=== PATIENT | male | born 1965 | race Caucasian/White ===

== ENCOUNTER 2017-02-02 14:25 | Emergency (ER) | payer MEDICAID ==
[~2017-02-02] VITALS: Ht 175.3 cm; Wt 105.0 kg
[~2017-02-02 14:25] MED LIST: TRAM50TA3 PO
[2017-02-02] MEDS ORDERED: KETOROLAC 60MG/2ML VIAL IM ONE (19:00)
[2017-02-02] MEDS ORDERED: MORPHINE SULFATE 4 MG/ML CPJ (NOT FOR IM USE) IV ONE (21:00)
[2017-02-02] MEDS ORDERED: ETOMIDATE 2MG/ML 10ML VIAL IV ONE (21:00)
[2017-02-03 04:30] VITALS: BP 135/85
== END 2017-02-03 12:59 | disposition home or self-care (01) ==
LOC: ER 14:48 → CANBEDREQ 02-03 07:30 → ER 02-03 12:59
DX: S43.015A Anterior dislocation of left humerus, initial encounter (principal); Z87.828 Personal history of other (healed) physical injury and trauma; W01.0XXA Fall on same level from slipping, tripping and stumbling without subsequent striking against object, initial encounter; Y93.89 Activity, other specified; Y92.018 Other place in single-family (private) house as the place of occurrence of the external cause
CPT/HCPCS: 23650; 73030; 96372; 96374; 99152; 99291; J1885; J2270; J3490; Z7610

== ENCOUNTER 2017-05-31 12:40 | Emergency (ER) | payer MEDICAID ==
[~2017-05-31] VITALS: Ht 185.4 cm; Wt 146.0 kg
[2017-05-31 12:49] VITALS: BP 128/84
== END 2017-05-31 18:11 | disposition left against medical advice (07) ==
LOC: ER 16:08
DX: Z53.21 Procedure and treatment not carried out due to patient leaving prior to being seen by health care provider (principal)

== ENCOUNTER 2018-02-16 08:31 | Emergency (ER) | payer MEDICAID ==
[~2018-02-16] VITALS: Ht 185.4 cm; Wt 109.0 kg
[2018-02-16] MEDS ORDERED: IBUPROFEN 600MG TABLET PO ONE (11:45)
[2018-02-16 13:50] VITALS: BP 137/86
== END 2018-02-16 13:54 | disposition home or self-care (01) ==
LOC: ER 08:31
DX: M17.11 Unilateral primary osteoarthritis, right knee (principal)
CPT/HCPCS: 73562; 93971; 99284

== ENCOUNTER 2018-02-18 22:33 | Emergency (ER) | payer MEDICAID ==
[~2018-02-18] VITALS: Ht 185.4 cm; Wt 110.0 kg
[2018-02-19] MEDS ORDERED: IBUPROFEN 600MG TABLET PO ONE (01:45)
[2018-02-19 03:10] VITALS: BP 136/82
== END 2018-02-19 10:06 | disposition home or self-care (01) ==
LOC: ER 22:33
DX: M17.11 Unilateral primary osteoarthritis, right knee (principal); M25.561 Pain in right knee
CPT/HCPCS: 96372; 99283

== ENCOUNTER 2018-03-19 18:22 | Emergency (ER) | payer MEDICAID ==
[~2018-03-19] VITALS: Ht 185.4 cm; Wt 115.0 kg
[2018-03-19] MEDS ORDERED: IBUPROFEN 600MG TABLET PO ONE (22:30)
[2018-03-20] MEDS ORDERED: HYDROCODONE/ACETAMINOPHEN 5/325MG TABLET PO ONE (00:30)
[2018-03-20 01:58] VITALS: BP 138/87
== END 2018-03-20 02:13 | disposition home or self-care (01) ==
LOC: ER 18:22
DX: M54.5 Low back pain (principal); M25.551 Pain in right hip; M25.561 Pain in right knee
CPT/HCPCS: 72100; 73502; 73552; 73560; 99284; Z7610

== ENCOUNTER 2018-08-06 22:17 | Emergency (ER) | payer MEDICAID ==
[~2018-08-06] VITALS: Ht 185.4 cm; Wt 118.0 kg
[2018-08-07] MEDS ORDERED: IBUPROFEN 600MG TABLET PO ONE (08:15)
[2018-08-07] MEDS ORDERED: IBUPROFEN 600MG TABLET ONE (08:31)
[2018-08-07 08:56] VITALS: BP 135/77
== END 2018-08-07 08:32 | disposition home or self-care (01) ==
LOC: ER 22:17
DX: M13.861 Other specified arthritis, right knee (principal); M25.561 Pain in right knee; E66.9 Obesity, unspecified; F17.200 Nicotine dependence, unspecified, uncomplicated; Z68.34 Body mass index [BMI] 34.0-34.9, adult; Z91.81 History of falling
CPT/HCPCS: 73562; 99283

== ENCOUNTER 2018-08-08 01:36 | Emergency (ER) | payer MEDICAID ==
[~2018-08-08] VITALS: Ht 185.4 cm; Wt 106.6 kg
[2018-08-08] MEDS ORDERED: KETOROLAC 60MG/2ML VIAL IM ONE (04:15)
[2018-08-08 06:48] VITALS: BP 122/70
== END 2018-08-08 06:53 | disposition home or self-care (01) ==
LOC: ER 01:36
DX: M25.561 Pain in right knee (principal); F17.200 Nicotine dependence, unspecified, uncomplicated; F11.10 Opioid abuse, uncomplicated; Z79.899 Other long term (current) drug therapy; Z90.89 Acquired absence of other organs
CPT/HCPCS: 96372; 99283; J1885

== ENCOUNTER 2018-09-05 20:19 | Emergency (ER) | payer MEDICAID ==
[~2018-09-05] VITALS: Ht 185.4 cm; Wt 105.0 kg
[2018-09-05 20:44] VITALS: BP 145/77
== END 2018-09-05 23:20 | disposition left against medical advice (07) ==
LOC: ER 20:19
DX: M79.661 Pain in right lower leg (principal); Z53.21 Procedure and treatment not carried out due to patient leaving prior to being seen by health care provider

== ENCOUNTER 2018-09-06 06:44 | Emergency (ER) | payer MEDICAID ==
[~2018-09-06] VITALS: Ht 185.4 cm; Wt 104.0 kg
[2018-09-06 10:58] LABS: BASOPHILS % 0.5 % (0.0-2.0); EOSINOPHILS % 2.4 % (0.0-5.0); HEMATOCRIT. 42.8 % (42.0-52.0); HEMOGLOBIN. 13.9 g/dL (14.0-18.0); LYMPHOCYTES % 14.3 % (20.0-50.0); MEAN CORPUSCULAR HEMOGLOBIN 29.7 pg (28.0-32.0); MEAN CORPUSCULAR VOLUME 91.3 fL (80.0-94.0); MEAN PLATELET VOLUME 7.5 fl (7.4-10.4); MONOCYTES % 9.2 % (2.0-8.0); NEUTROPHILS % 73.6 % (40.0-76.0); PLATELET 343 x1000/uL (130-400); RED BLOOD CELL COUNT 4.69 mill/uL (4.7-6.1); RED CELL DISTRIBUTION WIDTH 13.6 % (11.6-14.6)
[2018-09-06 11:02] LABS: CHLORIDE 106 mEq/L (98-107)
[2018-09-06 11:04] LABS: PROTHROMBIN TIME 9.9 sec (9.1-11.1)
[2018-09-06] MEDS ORDERED: OXYCODONE HCL/ACETAMINOPHEN 5/325MG TABLET PO ONE (11:15)
[2018-09-06] MEDS ORDERED: IBUPROFEN 800MG TABLET PO ONE (13:15)
[2018-09-06] MEDS ORDERED: SULFAMETHOXAZOLE/TRIMETHOPRIM 400/80MG TAB PO ONE (13:30)
[2018-09-06] MEDS ORDERED: CEPHALEXIN 250MG CAPSULE PO ONE (13:30)
[2018-09-07 14:45] VITALS: BP 138/61
== END 2018-09-07 14:55 | disposition home or self-care (01) ==
LOC: ER 06:44
DX: L03.115 Cellulitis of right lower limb (principal); M54.30 Sciatica, unspecified side; F17.200 Nicotine dependence, unspecified, uncomplicated; Z79.899 Other long term (current) drug therapy
CPT/HCPCS: 36415; 93005; 93971; 99284; 99406

== ENCOUNTER 2018-10-21 13:45 | Emergency (ER) | payer MEDICAID ==
[~2018-10-21] VITALS: Ht 180.3 cm; Wt 110.0 kg
[2018-10-21] MEDS ORDERED: MORPHINE SULFATE 4 MG/ML CPJ (NOT FOR IM USE) IV STA (14:23)
[2018-10-21] MEDS ORDERED: KETAMINE HCL 50 MG/ML 10ML IV ONE (15:00)
[2018-10-21] MEDS ORDERED: PROPOFOL 200MG/20ML VIAL IV ONE (15:00)
[2018-10-21 17:16] VITALS: BP 149/76
== END 2018-10-21 17:30 | disposition home or self-care (01) ==
LOC: ER 13:45
DX: S43.084A Other dislocation of right shoulder joint, initial encounter (principal); M54.30 Sciatica, unspecified side; W01.0XXA Fall on same level from slipping, tripping and stumbling without subsequent striking against object, initial encounter; Y93.89 Activity, other specified; Y92.89 Other specified places as the place of occurrence of the external cause
CPT/HCPCS: 23650; 73030; 96374; 99152; 99285; J2270; J2704; J3490; Z7610; A4565

== ENCOUNTER 2018-10-25 15:16 | Emergency (ER) | payer MEDICAID ==
[~2018-10-25] VITALS: Ht 185.4 cm; Wt 73.0 kg
[2018-10-25 17:43] VITALS: BP 158/89
== END 2018-10-25 21:33 | disposition left against medical advice (07) ==
LOC: ER 15:54
DX: S43.004A Unspecified dislocation of right shoulder joint, initial encounter (principal); X58.XXXA Exposure to other specified factors, initial encounter; Y93.89 Activity, other specified; Y92.89 Other specified places as the place of occurrence of the external cause
CPT/HCPCS: 99281

== ENCOUNTER 2018-10-25 22:23 | Emergency (ER) | payer MEDICAID ==
[~2018-10-25] VITALS: Ht 185.4 cm; Wt 118.0 kg
[2018-10-26] MEDS ORDERED: KETOROLAC 60MG/2ML VIAL IM ONE (02:45)
[2018-10-26] MEDS ORDERED: PROPOFOL 200MG/20ML VIAL IV ONE (03:45)
[2018-10-26] MEDS ORDERED: SODIUM CHLORIDE 0.9% 1,000 ML IV ONE (03:45)
[2018-10-26] MEDS ORDERED: MORPHINE SULFATE 4 MG/ML CPJ (NOT FOR IM USE) IV ONE (03:45)
[2018-10-26 11:16] VITALS: BP 180/88
== END 2018-10-26 11:45 | disposition home or self-care (01) ==
LOC: ER 22:23
DX: S43.084A Other dislocation of right shoulder joint, initial encounter (principal); F17.200 Nicotine dependence, unspecified, uncomplicated; X58.XXXA Exposure to other specified factors, initial encounter; Y93.89 Activity, other specified; Y92.89 Other specified places as the place of occurrence of the external cause; Y99.8 Other external cause status
CPT/HCPCS: 23650; 73020; 73030; 96372; 96374; 99152; 99285; J1885; J2704; J7030; Z7610; J2270

== ENCOUNTER 2018-12-11 00:10 | Emergency (ER) | payer MEDICAID, OTHER ==
[~2018-12-11] VITALS: Ht 185.4 cm; Wt 123.0 kg
[2018-12-11] MEDS ORDERED: IBUPROFEN 800MG TABLET PO ONE (03:30)
[2018-12-11] MEDS ORDERED: VANCOMYCIN 1 G PREMIX 200 ML IV SCH (04:30)
[2018-12-11 10:56] VITALS: BP 135/80
== END 2018-12-11 11:45 | disposition home or self-care (01) ==
LOC: ER 00:10
DX: M25.561 Pain in right knee (principal); L03.90 Cellulitis, unspecified; M25.572 Pain in left ankle and joints of left foot; G89.29 Other chronic pain; M54.30 Sciatica, unspecified side; Z59.0 Homelessness
CPT/HCPCS: 73560; 96365; 99283; J3370; Z7610

== ENCOUNTER 2018-12-14 11:23 | Emergency (ER) | payer MEDICAID ==
[~2018-12-14] VITALS: Ht 185.4 cm; Wt 109.0 kg
[2018-12-14 11:24] VITALS: BP 145/75
== END 2018-12-14 13:32 | disposition left against medical advice (07) ==
LOC: ER 12:03
DX: M25.561 Pain in right knee (principal); Z53.21 Procedure and treatment not carried out due to patient leaving prior to being seen by health care provider

== ENCOUNTER 2018-12-14 21:16 | Emergency (ER) | payer MEDICAID ==
[~2018-12-14] VITALS: Ht 185.4 cm; Wt 112.0 kg
[2018-12-14 21:31] VITALS: BP 128/72
== END 2018-12-15 00:19 | disposition left against medical advice (07) ==
LOC: ER 21:16
DX: M25.561 Pain in right knee (principal); Z53.21 Procedure and treatment not carried out due to patient leaving prior to being seen by health care provider

== ENCOUNTER 2018-12-22 03:00 | Emergency (ER) | payer MEDICAID ==
[~2018-12-22] VITALS: Ht 177.8 cm; Wt 118.0 kg
[2018-12-22] MEDS ORDERED: BACITRACIN ZINC OINT UDPKT TOP ONE (06:45)
[2018-12-22] MEDS ORDERED: HYDROCODONE/ACETAMINOPHEN 5/325MG TABLET PO ONE (07:45)
[2018-12-22] MEDS ORDERED: TETANUS, DIPHTHERIA, PERTUSSIS VAC/PF 0.5ML (>7YR OLD) IM ONE (07:45)
[2018-12-23 07:30] VITALS: BP 132/76
== END 2018-12-23 10:40 | disposition left against medical advice (07) ==
LOC: ER 03:00
DX: S01.81XA Laceration without foreign body of other part of head, initial encounter (principal); S01.511A Laceration without foreign body of lip, initial encounter; M25.461 Effusion, right knee; M54.30 Sciatica, unspecified side; Z59.0 Homelessness; Y04.0XXA Assault by unarmed brawl or fight, initial encounter; Y93.89 Activity, other specified; Y92.89 Other specified places as the place of occurrence of the external cause
CPT/HCPCS: 73560; 90471; 90715; 99283; A4217; Z7610

== ENCOUNTER 2018-12-25 00:02 | Emergency (ER) | payer MEDICAID ==
[~2018-12-25] VITALS: Ht 185.4 cm; Wt 109.0 kg
[2018-12-25] MEDS ORDERED: IBUPROFEN 600MG TABLET PO ONE (02:30)
[2018-12-25 06:24] VITALS: BP 138/82
== END 2018-12-25 06:25 | disposition home or self-care (01) ==
LOC: ER 00:02
DX: M25.561 Pain in right knee (principal); S01.81XA Laceration without foreign body of other part of head, initial encounter; S01.511A Laceration without foreign body of lip, initial encounter; Y09 Assault by unspecified means; Z59.0 Homelessness; F17.210 Nicotine dependence, cigarettes, uncomplicated; Y92.89 Other specified places as the place of occurrence of the external cause
CPT/HCPCS: 99283

== ENCOUNTER 2019-06-24 03:52 | Emergency (ER) | payer MEDICAID, MEDICARE ==
[~2019-06-24] VITALS: Ht 185.4 cm; Wt 69.0 kg
[2019-06-24] MEDS ORDERED: DEXAMETHASONE 4MG TABLET PO ONE (05:15)
[2019-06-24] MEDS ORDERED: CYCLOBENZAPRINE 10MG TABLET PO ONE (05:15)
[2019-06-24] MEDS ORDERED: KETOROLAC 30MG/ML VIAL IM ONE (06:15)
[2019-06-24 07:44] VITALS: BP 138/88
== END 2019-06-24 08:02 | disposition home or self-care (01) ==
LOC: ER 04:23
DX: M25.561 Pain in right knee (principal); M79.89 Other specified soft tissue disorders; F17.200 Nicotine dependence, unspecified, uncomplicated
CPT/HCPCS: 73562; 96372; 99283; J1885; J8540; L1830; Z7610

== ENCOUNTER 2019-10-12 15:23 | Emergency (ER) | payer MEDICAID, MEDICARE ==
[~2019-10-12] VITALS: Ht 185.4 cm; Wt 109.0 kg
[2019-10-12] MEDS ORDERED: KETOROLAC 60MG/2ML VIAL IM ONE (18:30)
[2019-10-12 20:54] VITALS: BP 142/78
== END 2019-10-12 20:54 | disposition home or self-care (01) ==
LOC: ER 15:23
DX: M17.0 Bilateral primary osteoarthritis of knee (principal); S70.02XA Contusion of left hip, initial encounter; M54.30 Sciatica, unspecified side; W01.10XA Fall on same level from slipping, tripping and stumbling with subsequent striking against unspecified object, initial encounter; Y93.89 Activity, other specified; Y92.89 Other specified places as the place of occurrence of the external cause
CPT/HCPCS: 73502; 96372; 99283; J1885

== ENCOUNTER 2019-11-14 20:30 | Emergency (ER) | payer MEDICARE, OTHER ==
[~2019-11-14] VITALS: Ht 185.4 cm; Wt 104.0 kg
[2019-11-14] MEDS ORDERED: KETOROLAC 60MG/2ML VIAL IM ONE (21:45)
[2019-11-14] MEDS ORDERED: HYDROCODONE/ACETAMINOPHEN 5/325MG TABLET PO ONE (23:30)
[2019-11-15 15:19] VITALS: BP 110/64
== END 2019-11-15 18:08 | disposition home or self-care (01) ==
LOC: ER 20:30
DX: M54.30 Sciatica, unspecified side (principal); M79.605 Pain in left leg; M79.604 Pain in right leg; F17.210 Nicotine dependence, cigarettes, uncomplicated; W01.0XXA Fall on same level from slipping, tripping and stumbling without subsequent striking against object, initial encounter; Y93.89 Activity, other specified; Y92.018 Other place in single-family (private) house as the place of occurrence of the external cause
CPT/HCPCS: 72100; 96372; 99285; J1885